=== PATIENT | female | born 1945 | race Caucasian/White ===

== ENCOUNTER → 2019-01-14 | Outpatient (CLI) | payer MEDICARE ==
[2019-01-14 12:12] LABS: Basophils # (A) 0.1 k/uL (0-0.2); Basophils % (A) 2 %; Eosinophils # (A) 0.2 k/uL (0-0.7); Eosinophils % (A) 5 %; HCT 38.8 % (34.0-46.0); HGB 12.9 gm/dL (11.4-16.0); Lymphocytes # (A) 1.1 k/uL (1.0-4.8); Lymphocytes % (A) 30 %; MCH 28.9 pg (25.0-35.0); MCHC 33.4 g/dL (31.0-37.0); MCV 86.6 fL (80.0-100.0); Mean Platelet Volume 7.6; Monocytes # (A) 0.2 k/uL (0-1.0); Monocytes % (A) 6 %; Neutrophils # (A) 2.1 k/uL (1.3-7.7); Neutrophils % (A) 54 %; Platelet Count 230 k/uL (150-450); RBC 4.48 m/uL (3.80-5.40); RDW 13.5 % (11.5-15.5); WBC 3.8 k/uL (3.8-10.6)
[2019-01-14 12:17] LABS: Appearance,Urine Clear (Clear); Bilirubin,Urine Negative (Negative); Blood,Urine Negative (Negative); Color,Urine Yellow; Glucose,Urine (UA) Negative (Negative); Ketones,Urine Negative (Negative); Leukocyte Esterase,Urine Negative (Negative); Nitrite,Urine Negative (Negative); PH, Urine 7.5 (5.0-8.0); Protein,Urine Negative (Negative); Specific Gravity,Urine 1.007 (1.001-1.035); Urobilinogen,Urine <2.0 mg/dL (<2.0)
[2019-01-14 12:43] LABS: Anion Gap 8 mmol/L; Blood Urea Nitrogen 28 mg/dL (7-17); Calcium 10.3 mg/dL (8.4-10.2); Carbon Dioxide 28 mmol/L (22-30); Chloride 105 mmol/L (98-107); Glucose 122 mg/dL (74-99); Potassium 4.3 mmol/L (3.5-5.1); Sodium 141 mmol/L (137-145)
== END | disposition home or self-care (01) ==
LOC: LABPAT 11:32
PROVIDERS: ATTEND Urology
DX: Z01.818 Encounter for other preprocedural examination (principal); Z01.812 Encounter for preprocedural laboratory examination; I10 Essential (primary) hypertension; N39.3 Stress incontinence (female) (male); E11.9 Type 2 diabetes mellitus without complications; R35.0 Frequency of micturition
CPT/HCPCS: 36415; 80048; 81003; 85025; 87086; 93005; 96360; 99285

== ENCOUNTER 2019-01-21 07:11 | Day surgery (SDC) | payer MEDICARE ==
[2019-01-19 09:24] VITALS: BMI 31.6
--- NOTE | 2019-01-20 19:53 | P.GSHP ---
History of Present Illness H&P Date: 01/20/19 73 yo female with mixed incontinence with a primary stress component who comes for a TOT to control her neftaly. SHe leaks with cough sneeze and actvity Her UDS showed lpp of 139cm h2o and a capacity of 375 SHe comes for a TOT THe erisks and complications including the MESH controversy has been discussed. - Constitutional Constitutional: Denies chills, Denies fever - EENT Eyes: denies blurred vision, denies pain Ears, nose, mouth and throat: Denies headache, Denies sore throat - Cardiovascular Cardiovascular: Denies chest pain, Denies shortness of breath - Respiratory Respiratory: Denies cough, Denies 7 - Gastrointestinal Gastrointestinal: Denies abdominal pain, Denies diarrhea, Denies nausea, Denies vomiting - Genitourinary (Female) Genitourinary: Denies dysuria, Denies hematuria - Genitourinary (Male) Genitourinary: Denies dysuria, Denies hematuria - Musculoskeletal Musculoskeletal: Denies myalgias - Integumentary Integumentary: Denies pruritus, Denies rash - Neurological Neurological: Denies numbness, Denies weakness - Psychiatric Psychiatric: Denies anxiety, Denies depression - Endocrine Endocrine: Denies fatigue, Denies weight change Past Medical History Past Medical History: CVA/TIA, Diabetes Mellitus, Hyperlipidemia, Hypertension, Osteoarthritis (OA) History of Any Multi-Drug Resistant Organisms: None Reported Past Surgical History: Adenoidectomy, Joint Replacement, Tonsillectomy, Tubal Ligation Additional Past Surgical History / Comment(s): sinus, finger, bilat knee replacement Past Anesthesia/Blood Transfusion Reactions: No Reported Reaction Smoking Status: Never smoker - Past Family History Sister(s) Family Medical History: Myocardial Infarction ([place]), Pulmonary Embolus Medications and Allergies Home Medications Medication Instructions Recorded Confirmed Type Acyclovir [Zovirax] 400 mg PO TID PRN 01/19/19 01/19/19 History Aspirin [Adult Low Dose Aspirin EC] 81 mg PO QAM 01/19/19 01/19/19 History Atenolol [Tenormin] 25 mg PO QAM 01/19/19 01/19/19 History Atorvastatin [Lipitor] 20 mg PO HS 01/19/19 01/19/19 History Calcium/Magnesium/Zinc 1 each PO DAILY 01/19/19 01/19/19 History [Fiznvaz-Wwbwezacc-Tprf Tablet] Chlorpheniramine Maleate 4 mg PO DAILY 01/19/19 01/19/19 History [Chlor-Trimeton] Fenofibrate [Lofibra] 160 mg PO DAILY 01/19/19 01/19/19 History Lecithin, Soy [Lecithin] 400 mg PO DAILY 01/19/19 01/19/19 History Lisinopril [Zestril] 5 mg PO QAM 01/19/19 01/19/19 History Magnesium 400 mg PO DAILY 01/19/19 01/19/19 History Multivitamins, Thera [Multivitamin 1 tab PO QAM 01/19/19 01/19/19 History (formulary)] [place]-3 Fatty Acids/Fish Oil [Fish 1 each PO DAILY 01/19/19 01/19/19 History Oil 1,000 mg Softgel] Potassium 99 mg PO QAM 01/19/19 01/19/19 History Sertraline [Zoloft] 50 mg PO QAM 01/19/19 01/19/19 History Vitamin B Complex 1 each PO QAM 01/19/19 01/19/19 History metFORMIN HCL [Glucophage] 500 mg PO BID 01/19/19 01/19/19 History tiZANidine [Zanaflex] 2 mg PO Q8HR PRN 01/19/19 01/19/19 History Allergies Allergy/AdvReac Type Severity Reaction Status Date / Time No Known Allergies Allergy Verified 01/19/19 08:57 Surgical - Exam - General well developed, well nourished - Eyes PERRL - ENT no hearing loss - Neck trachea midline - Respiratory normal expansion, normal respiratory effort - Abdomen Abdomen: soft, non tender - Genitourinary neftaly with valsalva with hypermobility of the urethra. - Integumentary no rash, no growths - Neurologic normal coordination, normal sensation - Musculoskeletal normal gait, normal posture - Psychiatric oriented to time, oriented to person, oriented to place, speech is normal, memory intact
[~2019-01-21 07:11] MED LIST: DEXAMETHASONE SOD PHOSPHATE 10 MG/ML 1 ML VIAL IV ONE; HYDROmorphone 0.5 MG/0.5 ML SYRINGE IVP PRN; MIDAZOLAM 2 MG/2 ML VIAL IV PRN; ONDANSETRON 4 MG/2 ML VIAL IVP ONE; SCOPOLAMINE 1.5MG/72HR PATCH TRANSDERM ONE
[2019-01-21] MEDS ORDERED: LIDOCAINE 1% 20 ML VIAL (10MG/ML) FOR IV START INTRADERMA ONE (07:28)
[2019-01-21] MEDS: LACTATED RINGERS 1,000 ML IV SCH ×2 (07:29→20:32)
[2019-01-21 07:49] LABS: Glucose,Whole Blood 137 mg/dL (75-99)
[2019-01-21] MEDS ORDERED: LIDOCAINE 1% INJ 10MG/ML (20 ML MDV) ONE (08:25)
[2019-01-21] MEDS ORDERED: PROPOFOL 10 MG/ML 20 ML VIAL IV ONE (08:25)
[2019-01-21] MEDS ORDERED: MIDAZOLAM 2 MG/2 ML VIAL ONE (08:25)
[2019-01-21] MEDS ORDERED: fentaNYL (PF) 50 MCG/ML 2 ML AMP ONE (08:25)
[2019-01-21] MEDS ORDERED: SUCCINYLCHOLINE CHLORIDE 100 MG/5 ML SYR IV ONE (08:25)
[2019-01-21] MEDS ORDERED: GENTAMICIN IN NACL ISO-OSM PMX 80 MG/100 ML BAG IV ONE (08:45)
[2019-01-21] MEDS ORDERED: BACITRACIN 500 UNIT/GM OINT 28.4 GM TUBE TOPICAL ONE (08:45)
[2019-01-21] MEDS ORDERED: VASOPRESSIN 20 UNIT/ML 1 ML VIAL IM ONE (08:45)
[2019-01-21] MEDS ORDERED: NON-FORMULARY DRUG (Acyclovir [Zovirax] 400 MG) PO PRN (09:11)
[2019-01-21] MEDS ORDERED: ONDANSETRON 4 MG/2 ML VIAL IVP PRN (09:13)
[2019-01-21] MEDS ORDERED: HYDROcodone/APAP 5-325MG 1 EACH TAB PO PRN (09:15)
--- NOTE | 2019-01-21 09:18 | P.OP ---
Date of Procedure: 01/21/19 Preoperative Diagnosis: Stress urinary incontinence Postoperative Diagnosis: Same Procedure(s) Performed: Trans-obturator tape with cystoscopy Anesthesia: MAXIMUS Surgeon: Ta Abraham Estimated Blood Loss (ml): 25 Pathology: none sent Condition: stable Disposition: PACU Indications for Procedure: The patient is 73. She has documented stress urinary incontinence. She comes for a trans-obturator tape. The mesh controversy has been discussed Description of Procedure: The patient is brought to the operating suite. She is given a successful general endotracheal anesthesia on the operating table. She's placed lithotomy position with a shave and sterile prep and drape. The labia are sewn laterally with 2-0 silk. A 16[place] Garcia cath was introduced the bladder clear urine return. A vaginal speculum was placed. The anterior vaginal mucosa was elevated off the submucosa with 20 g of Pitressin and 200 mL of saline. A midline suburethral incision is made. I dissect lateral the bladder neck bilaterally. I then make incisions in the inguinal crease at the level of the clitoris bilaterally. I passed the obturator trans-obturator tape introducers into the incisions through the obturator foramen into the vaginal space bilaterally making sure not to buttonhole the vagina or injure the bladder. Cystoscopy Foroblique lens and 17[place] sheath was performed identifying no evidence of bladder injury. The ureters are normal. The bladder mucosa is unremarkable. I then attached the graft to the introducers and pull the graft back through the obturator foramen through the inguinal incisions. The graft lay in the mid urethra nicely. I removed the redundant sheeting. I closed the vaginal mucosa with 2-0 Vicryl. I excised the redundant graft at the inguinal incisions and closed the inguinal incisions with 4-0 Vicryl. A Garcia catheters previously been replaced. The urine remains clear. Vaginal packing is placed. The labial stitches are removed. The patient is awake and returned recovery in good condition. Blood loss is approximately 25 mL.
[2019-01-21] MEDS: KETOROLAC 30 MG/ML 1 ML VIAL IVP PRN ×3 (10:35→23:45)
[2019-01-21] MEDS: SODIUM CHLORIDE 0.45% 1,000 ML IV SCH ×2 (10:54→22:14)
[2019-01-21] MEDS: metFORMIN 500 MG TAB PO SCH (17:24)
[2019-01-21] MEDS ORDERED: LORATADINE-PSEUDOEPH 5-120 MG 1 EACH TAB.ER.12H PO PRN (17:32)
[2019-01-21] MEDS ORDERED: ATORVASTATIN 20 MG TAB PO SCH (21:00)
[2019-01-22 00:54] VITALS: PULSE 75
--- NOTE | 2019-01-22 06:19 | P.DS ---
Providers Attending physician: Ta Abraham Primary care physician: [facility] Course: The patient was admitted to the hospital 01/21/2019 for a trans-obturator tape cystoscopy. She underwent this without difficulty. She was kept in the hospital overnight. Her pain was controlled other than some hip discomfort due to lithotomy position. Vital signs are stable. Urine is clear. The catheter vaginal packing and IV will be discontinued this morning. If she voids without difficulty she'll be discharged home later. She'll resume all her home medications. She will take Tylenol or Motrin for pain. She'll follow-up in the office in one week. Her condition is good. Patient Condition at Discharge: Good Plan - Discharge Summary Discharge Rx Participant: No New Discharge Prescriptions: No Action Multivitamins, Thera [Multivitamin (formulary)] 1 tab PO QAM Acyclovir [Zovirax] 400 mg PO TID PRN PRN Reason: cold sores metFORMIN HCL [Glucophage] 500 mg PO BID Sertraline [Zoloft] 50 mg PO QAM Atorvastatin [Lipitor] 20 mg PO HS Atenolol [Tenormin] 25 mg PO QAM Vitamin B Complex 1 each PO QAM Potassium 99 mg PO QAM [place]-3 Fatty Acids/Fish Oil [Fish Oil 1,000 mg Softgel] 1 each PO DAILY Magnesium 400 mg PO DAILY Lisinopril [Zestril] 5 mg PO QAM Lecithin, Soy [Lecithin] 400 mg PO DAILY Fenofibrate [Lofibra] 160 mg PO DAILY Chlorpheniramine Maleate [Chlor-Trimeton] 4 mg PO DAILY Calcium/Magnesium/Zinc [Shfkxpc-Nxgyrvbto-Eciz Tablet] 1 each PO DAILY Aspirin [Adult Low Dose Aspirin EC] 81 mg PO QAM tiZANidine [Zanaflex] 2 mg PO Q8HR PRN PRN Reason: Muscle Spasm Discharge Medication List Acyclovir [Zovirax] 400 mg PO TID PRN 01/19/19 [History] Aspirin [Adult Low Dose Aspirin EC] 81 mg PO QAM 01/19/19 [History] Atenolol [Tenormin] 25 mg PO QAM 01/19/19 [History] Atorvastatin [Lipitor] 20 mg PO HS 01/19/19 [History] Calcium/Magnesium/Zinc [Tqwuklx-Xehtvozjq-Fhhb Tablet] 1 each PO DAILY 01/19/19 [History] Chlorpheniramine Maleate [Chlor-Trimeton] 4 mg PO DAILY 01/19/19 [History] Fenofibrate [Lofibra] 160 mg PO DAILY 01/19/19 [History] Lecithin, Soy [Lecithin] 400 mg PO DAILY 01/19/19 [History] Lisinopril [Zestril] 5 mg PO QAM 01/19/19 [History] Magnesium 400 mg PO DAILY 01/19/19 [History] Multivitamins, Thera [Multivitamin (formulary)] 1 tab PO QAM 01/19/19 [History] [place]-3 Fatty Acids/Fish Oil [Fish Oil 1,000 mg Softgel] 1 each PO DAILY 01/19/19 [History] Potassium 99 mg PO QAM 01/19/19 [History] Sertraline [Zoloft] 50 mg PO QAM 01/19/19 [History] Vitamin B Complex 1 each PO QAM 01/19/19 [History] metFORMIN HCL [Glucophage] 500 mg PO BID 01/19/19 [History] tiZANidine [Zanaflex] 2 mg PO Q8HR PRN 01/19/19 [History] Follow up Appointment(s)/Referral(s): aT Abraham MD [STAFF PHYSICIAN] - 1 Week Discharge Disposition: HOME SELF-CARE
[2019-01-22] MEDS: metFORMIN 500 MG TAB PO SCH (06:53)
[2019-01-22] MEDS: SODIUM CHLORIDE 0.45% 1,000 ML IV SCH (08:29)
[2019-01-22] MEDS ORDERED: FENOFIBRATE 160 MG TAB PO SCH (09:00)
[2019-01-22] MEDS ORDERED: LISINOPRIL 5 MG TAB PO SCH (09:00)
[2019-01-22] MEDS ORDERED: NON-FORMULARY DRUG (Magnesium [Magnesium] 400 MG) PO SCH (09:00)
[2019-01-22] MEDS ORDERED: ATENOLOL 25 MG TAB PO SCH (09:00)
[2019-01-22] MEDS ORDERED: SERTRALINE 50 MG TAB PO SCH (09:00)
[2019-01-22] MEDS ORDERED: CHLORPHENIRAMINE MALEATE 4 MG PO SCH (09:00)
[2019-01-22] MEDS ORDERED: NON-FORMULARY DRUG (Potassium [Potassium] 99 MG) PO SCH (09:00)
[2019-01-22 10:03] VITALS: BP 145/75; RESP 20; TEMP 98.1
[2019-01-23 10:58] LABS: Glucose,Whole Blood 128 mg/dL (75-99)
== END 2019-01-22 12:25 | disposition home or self-care (01) ==
LOC: OR 07:11 → 6PED 09:36 → OR 01-22 12:25
PROVIDERS: ATTEND Urology
DX: N39.46 Mixed incontinence (principal); I10 Essential (primary) hypertension; E78.5 Hyperlipidemia, unspecified; E11.9 Type 2 diabetes mellitus without complications; Z86.73 Personal history of transient ischemic attack (TIA), and cerebral infarction without residual deficits; M19.90 Unspecified osteoarthritis, unspecified site; Z98.51 Tubal ligation status; Z79.84 Long term (current) use of oral hypoglycemic drugs; Z79.82 Long term (current) use of aspirin; Z79.899 Other long term (current) drug therapy
CPT/HCPCS: 57288; C1771; J1580; J2250; J1100; J2405; J0690; J2001; J3010; J1885; J0330; J2704

== ENCOUNTER → 2019-05-28 | Outpatient (CLI) | payer MEDICARE ==
[2019-05-28 10:52] VITALS: RESP 16; BMI 31.6
[2019-05-28 13:18] VITALS: BP 125/73; PULSE 56; TEMP 98.5
--- NOTE | 2019-05-28 14:01 | MM ---
EXAMINATION TYPE: MG stereo VAD BX LT, MG stereo VAD BX RT DATE OF EXAM: 05/28/2019 COMPARISON: Bilateral mammogram of the same date and prior reports from outside mammograms of 2019 CLINICAL HISTORY: Left breast calcifications for which stereotactic guided biopsy was recommended and right breast mass with no sonographic correlate for which stereotactic guided biopsy was also recommended TECHNIQUE: Stereotactic guided core biopsy of the bilateral breasts. FINDINGS: The procedure of stereotactic guided core biopsy was explained to the patient. Benefits, alternatives, and risks were discussed. An informed consent was then obtained. Preprocedural timeout was performed. Site A: Left breast. The shortness pathway for biopsy was chosen. Shortness pathway was lateral to medial approach. Preprocedural localization images were obtained and a 6 mm group of calcifications within the upper central right left was demonstrated. Coordinates were calculated. Subsequently 10 cc of lidocaine without epinephrine was utilized to anesthetize the skin and deeper subcutaneous soft tissues. The needle was advanced to the appropriate depth. Prefire images were obtained ensuring appropriate location. Postfire injection of 4 cc of lidocaine with epinephrine was utilized to anesthetize the site of biopsy. A vacuum assisted biopsy gun was used to obtain 8 core samples. Site B: Right breast.The shortness pathway for biopsy was chosen. Shortness pathway was CC from below approach. Preprocedural localization images were obtained and a 6 mm mass with associated calcifications within the upper central right breast was demonstrated. Coordinates were calculated. Subsequently 10 cc of lidocaine without epinephrine was utilized to anesthetize the skin and deeper subcutaneous soft tissues. The needle was advanced to the appropriate depth. Prefire images were obtained ensuring appropriate location. Postfire injection of 10 cc of lidocaine with epinephrine was utilized to anesthetize the site of biopsy. A vacuum assisted biopsy gun was used to obtain 9 core samples. The patient tolerated the procedure well without any immediate complication. The patient was kept in the radiology department for short stay after the procedure and then discharged home in stable condition. Targeted calcifications are identified in specimen mammogram. Post biopsy mammogram shows the right breast marker to appear approximately 2 cm from the biopsy area with air at the site of biopsy and absence of the associated calcifications. The needle was retracted slightly prior to biopsy marker placement as the patient was experiencing pain. The left biopsy marker to appear in satisfactory position relative to the targeted area of concern on the preprocedure images. IMPRESSION: SUCCESSFUL, UNCOMPLICATED STEREOTACTIC GUIDED CORE BIOPSY OF INDETERMINATE CALCIFICATIONS IN THE LEFT BREAST AND A MASS WITH ASSOCIATED CALCIFICATIONS IN THE RIGHT BREAST, FULL PATHOLOGY RESULTS TO FOLLOW. Pathology Results: Malignant A. LEFT BREAST, STEREOTACTIC CORE BIOPSY: Fibroadenomatoid hyperplasia with calcifications in a background of fibrocystic changes. B. 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 See Surgical Pathology Cancer Case Summary and Comment. Recommendation Surgical consultation of the right breast. Right breast surgical/medical management. Left breast benign and concordant. MTDD
--- NOTE | 2019-05-28 15:04 | USB ---
Reason for exam: additional evaluation requested from prior study. US Breast Limited RT Right limited breast ultrasound including focal area of concern, retroareolar and axilla demonstrates a 0.3 x 0.4 x 0.4cm lesion at 1 o'clock, appears as an oil cyst. Other smaller similar right masses. No suspicious finding. No sonographic correlate to the mammographic finding. These results were verbally communicated with the patient and result sheet given to the patient on 05/28/19. ASSESSMENT: Suspicious, BI-RAD 4 RECOMMENDATION: Stereotactic core biopsy of the right breast.
== END ==
LOC: RADMAMWWP 09:29
PROVIDERS: ATTEND Nurse Practitioner Family
DX: R92.8 Other abnormal and inconclusive findings on diagnostic imaging of breast (principal)
CPT/HCPCS: 19081; 19082; 88305; 88342; 88341; 76642; A4648; J2001

== ENCOUNTER → 2019-06-04 | Outpatient (CLI) | payer MEDICARE ==
[2019-06-04 07:44] VITALS: BP 145/81; PULSE 56; RESP 18; TEMP 97.6; BMI 31.6
--- NOTE | 2019-06-04 08:22 | P.GSHP ---
History of Present Illness H&P Date: 06/04/19 Clara is a 74-year-old white female who had a routine bilateral mammogram performed on . This revealed grouped calcifications in the left upper outer quadrant which had increased from prior exam. Stereotactic core biopsy was recommended. Additionally a right breast ultrasound was recommended. The right breast mammogram had revealed an area of the mass which did not show anything of concern on ultrasound. A right breast ultrasound was performed on 9518 this showed only a 0.3 x 0.4 cm lesion at 1:00 believed to be an oil cyst. The patient was recommended to undergo a stereo biopsy of both breast. Pathology revealed in the left breast fibroadenomatoid hyperplasia with calcifications. In the right breast focal low-grade ductal carcinoma in situ was found arising in a fibroadenoma. The patient did not feel anything in either breast prior to the procedure. She has had no complications related to the biopsies. In the past the patient has had a biopsy she is uncertain as to which side it was on but this was benign. Family history: 1.father: esophogeal cancer, at 40 2. maternal grandfather: colon cancer Hormonal history: Menarche: 12 , 1 miscarriage, breast fed: no, first at 18 menopause: 50 BCP: 8 years Hormones: none Past Surgical History: 1. bilateral knees replacement 2. bilateral hands 3. sinus 4. hysterectomy unsure if took ovaries, bleeding 5. carpal tunnel 6. bladder sling Medical History: 1. Incontinence 2. Diabetes 3. Hyperlipidemia 4. Hypertension 5. Arthritis Social History: smoke: none alcohol: none drugs: none - Constitutional Constitutional: Denies chills, Denies fever - EENT Comment: wears glasses Eyes: denies blurred vision, denies pain Ears: bilateral: decreased hearing Ears, nose, mouth and throat: Denies headache, Denies sore throat - Breasts Breasts: bilateral: as per HPI - Cardiovascular Comment: leaky valves, follows every six months Cardiovascular: Reports high blood pressure - Respiratory Respiratory: Denies cough, Denies 7 - Gastrointestinal Gastrointestinal: Denies abdominal pain, Denies diarrhea, Denies nausea, Denies vomiting - Genitourinary (Female) Comment: Incontinence - Menstruation Menstruation: Reports post hysterectomy - Musculoskeletal Comment: arthritis - Integumentary Integumentary: Denies pruritus, Denies rash - Neurological Neurological: Denies numbness, Denies weakness - Psychiatric Psychiatric: Reports anxiety - Endocrine Comment: diabetes - Hematologic/Lymphatic Comment: baby aspirin every day - Allergic/Immunologic Allergic/Immunologic: Reports seasonal allergies Past Medical History Past Medical History: Diabetes Mellitus, Hyperlipidemia, Hypertension Additional Past Medical History / Comment(s): arthritis History of Any Multi-Drug Resistant Organisms: None Reported Past Surgical History: Hysterectomy, Joint Replacement, Orthopedic Surgery, Tubal Ligation Additional Past Surgical History / Comment(s): bilat hand surgey, bilat knee replacement, sinus surgery, dilatation and curettage, history of breast biopsy (Unsure which breast), bilateral breast biopsies 05/28/2019, carpal tunnel surgery, bladder sleeve 2018, Past Anesthesia/Blood Transfusion Reactions: No Reported Reaction Past Psychological History: Anxiety Smoking Status: Never smoker Past Alcohol Use History: None Reported Past Drug Use History: None Reported - Past Family History Father Family Medical History: Cancer Additional Family Medical History / Comment(s): esophagus cancer Mother Family Medical History: No Reported History Medications and Allergies Home Medications Medication Instructions Recorded Confirmed Type Aspirin [Adult Low Dose Aspirin EC] 81 mg PO QA 01/19/19 06/04/19 History Atenolol [Tenormin] 25 mg PO QAM 01/19/19 06/04/19 History Atorvastatin [Lipitor] 20 mg PO 01/19/19 06/04/19 History Calcium/Magnesium/Zinc 1 each PO HS 01/19/19 06/04/19 History [Xmvcdhh-Qhyyttxjl-Jyge Tablet] Fenofibrate [Lofibra] 160 mg PO QA 01/19/19 06/04/19 History Lecithin, Soy [Lecithin] 400 mg PO DAILY 01/19/19 06/04/19 History Lisinopril [Zestril] 5 mg PO QAM 01/19/19 06/04/19 History Multivitamins, Thera [Multivitamin 1 tab PO [facility] 01/19/19 06/04/19 History (formulary)] [place]-3 Fatty Acids/Fish Oil [Fish 1 each PO DAILY 01/19/19 06/04/19 History Oil 1,000 mg Softgel] Potassium 99 mg PO QAM 01/19/19 06/04/19 History Sertraline [Zoloft] 50 mg PO QAM 01/19/19 06/04/19 History Vitamin B Complex 1 each PO QAM 01/19/19 06/04/19 History metFORMIN HCL 1,000 mg PO HS 05/13/19 06/04/19 History metFORMIN HCL [Glucophage] 500 mg PO QAM 05/28/19 06/04/19 History Allergies Allergy/AdvReac Type Severity Reaction Status Date / Time adhesive tape AdvReac Rash/Hives Unverified 06/04/19 07:33 Surgical - Exam Vital Signs Temp Pulse Resp BP Pulse Ox 97.6 F 56 L 18 145/81 97 06/04/19 07:36 06/04/19 07:36 06/04/19 07:36 06/04/19 07:36 06/04/19 07:36 BMI 31.6 - General well developed, well nourished, no distress - Eyes normal ocular movement - ENT no hearing loss, no congestion - Neck trachea midline - Respiratory normal respiratory effort, clear to auscultation - Cardiovascular Rhythm: regular Heart Sounds: normal: S1, S2 - Abdomen Abdomen: soft, non tender, no guarding, no rigid, no rebound - Integumentary Achymosis left breast lateral aspect related to ecent stero-biopsy - Neurologic no disoriented, no combative - Musculoskeletal normal gait, normal posture - Psychiatric oriented to time, oriented to person, oriented to place, speech is normal, memory intact Breast examination: 40 mL Right breast: Multi-positional exam no dominant masses or nodules of concern, fibrocystic changes Right axilla: No adenopathy of concern Left breast: Multi-positional exam no dominant masses or nodules of concern, ecchymosis lateral aspect of the breast with a small hematoma near the area of the achymosis, fibrocystic changes Left axilla: No adenopathy of concern Results Bilateral mammogram, right breast ultrasound, and pathology results are reviewed Assessment and Plan Assessment: Impression: 1. Incontinence 2. Diabetes 3. Hyperlipidemia 4. Hypertension 5. Arthritis 6. Abnormal radiographs bilateral breast 7. Abnormal ultrasound right breast 8. Fibrocystic changes left breast 9. Fibroadenoma right breast with DCIS arising in fibroadenoma 10. Family history of cancer Plan: 1. Needle localization excisional biopsy of fibroadenoma with DCIS in operating room 2. Presented tumor Board 3. Medical management of medical conditions 4. Cardiac clearance Risk and benefits of procedure discussed with patient and she wishes to proceed. She understands that if pathology reveal more extensive disease she may need further surgical intervention. Cc: Dr. Yan Gonzalez
== END ==
LOC: WWCWWP 07:22
PROVIDERS: ATTEND Surgery
DX: Z53.9 Procedure and treatment not carried out, unspecified reason (principal)

== ENCOUNTER 2019-06-23 10:17 | Day surgery (SDC) | payer MEDICARE ==
[2019-06-19 11:17] VITALS: BMI 31.6
[~2019-06-23 10:17] MED LIST changes: +HEPARIN SODIUM,PORCINE 5,000 UNIT/ML 1 ML VIAL SQ ONE; +LACTATED RINGERS 1,000 ML IV SCH; +LIDOCAINE 1% 20 ML VIAL (10MG/ML) FOR IV START INTRADERMA PRN; +Pre Op ABX Message 1 EACH MISC MISCELLANE ONE
[2019-06-23 11:05] LABS: Glucose,Whole Blood 112 mg/dL (75-99)
[2019-06-23] MEDS ORDERED: ALPRAZolam 0.25 MG TAB PO ONE (11:11)
[2019-06-23] MEDS ORDERED: LIDOCAINE 1% INJ 10MG/ML (20 ML MDV) SQ ONE ×3 (11:45→14:39)
[2019-06-23] MEDS ORDERED: GLYCOPYRROLATE 0.2 MG/ML 2 ML VIAL ONE (14:05)
[2019-06-23] MEDS ORDERED: PROPOFOL 10 MG/ML 20 ML VIAL IV ONE (14:05)
[2019-06-23] MEDS ORDERED: LIDOCAINE 1% INJ 10MG/ML (20 ML MDV) ONE (14:05)
[2019-06-23] MEDS ORDERED: MIDAZOLAM 2 MG/2 ML VIAL ONE (14:05)
[2019-06-23] MEDS ORDERED: PHENYLEPHRINE-0.9% NACL SYG 1 MG/10 ML SYRINGE ONE (14:05)
[2019-06-23] MEDS ORDERED: fentaNYL (PF) 50 MCG/ML 2 ML AMP ONE (14:05)
[2019-06-23] MEDS ORDERED: NEOSTIGMINE 1 MG/ML 10 ML VIAL ONE (14:05)
[2019-06-23] MEDS ORDERED: ROCURONIUM BROMIDE 10 MG/ML 10 ML VIAL IV ONE (14:05)
[2019-06-23] MEDS ORDERED: ePHEDrine SULFATE/0.9% NACL/PF 50 MG/5 ML SYRINGE IV ONE (14:05)
[2019-06-23] MEDS ORDERED: LACTATED RINGERS 1,000 ML IV ONE (14:15)
--- NOTE | 2019-06-23 15:38 | P.NAPBC ---
NAPBC Queries - NAPBC Queries Was patient's case review presented at [facility] tumor board? If no, comment.: Yes Was patient's pathology reviewed at [facility]? If no, comment.: Yes Was breast conservation surgery offered? If no, comment.: Yes Was sentinel node biopsy offered? If no, comment.: No (not recommended) Was diagnosis confirmed by percutaneous core biopsy? If no, comment.: Yes Is patient mastectomy patient?: No Clinical Stage: stage 0
--- NOTE | 2019-06-23 15:38 | P.OP ---
Date of Procedure: 06/23/19 Preoperative Diagnosis: right Breast ductal carcinoma in situ arising the fibroadenoma Postoperative Diagnosis: Same Procedure(s) Performed: Right breast needle localization excision of ductal carcinoma in situ, tissue transfer for on-co plastic closure Anesthesia: MAJORA Surgeon: Jewels Kelly Estimated Blood Loss (ml): 3 IV fluids (ml): 600 Pathology: other (breast tissue) Condition: stable Disposition: same day Indications for Procedure: Core biopsy proven ductal carcinoma in situ Operative Findings: Dense breast tissue Description of Procedure: Clara is a 74-year-old white female who had an ultrasound core biopsy of area of concern of the right breast. This revealed ductal carcinoma in situ in a fibroadenoma. The patient opted for a lumpectomy. The patient first went to the radiology department where needle localization of the area of concern was performed. The patient was brought to the operating room and the right breast was prepped and draped in a sterile fashion. A circumareolar incision was made and carried down to the subcutaneous tissue. Dissection was performed to the area of the shaft of the needle. This was brought through the skin. This tissue was grasped using an Allis clamp and a wedge resection was performed around the needle down to the pectoralis major muscle posteriorly. The specimen was painted for orientation and radiograph revealed the area of concern had been removed. Following this the superior and inferior tissue flaps were mobilized. This was approximately 10 cm x 2 cm for the superior flap and 10 cm x 2 cm for the inferior flap. Approximately 40 cm of tissue was mobilized. Titanium clips were placed into the area of the biopsy cavity to clara where the biopsy been performed. The superior and inferior pedicles of tissue were then mobilized and brought together using 3-0 Vicryl suture. After assured that hemostasis was attained the skin closure was performed. Following this the subcutaneous tissue was closed using 4-0 Vicryl suture. The skin was closed using a 4=0 Monocryl. Was applied. The patient tolerated the procedure in stable condition. All instrument and sponge counts were correct at the end of the case.
--- NOTE | 2019-06-23 15:39 | P.DS ---
Providers Attending physician: Jewels Kelly Primary care physician: Tim Rees Plan - Discharge Summary Discharge Rx Participant: Yes New Discharge Prescriptions: No Action Multivitamins, Thera [Multivitamin (formulary)] 1 tab PO QAM Sertraline [Zoloft] 50 mg PO QAM Atorvastatin [Lipitor] 20 mg PO HS Atenolol [Tenormin] 25 mg PO QAM Vitamin B Complex 1 each PO QAM Potassium 99 mg PO QAM Follett-3 Fatty Acids/Fish Oil [Fish Oil 1,000 mg Softgel] 1 each PO DAILY Lisinopril [Zestril] 5 mg PO QAM Lecithin, Soy [Lecithin] 400 mg PO DAILY Fenofibrate [Lofibra] 160 mg PO QAM Calcium/Magnesium/Zinc [Cniqmol-Kexvylmks-Kmbw Tablet] 3 each PO HS Aspirin [Adult Low Dose Aspirin EC] 81 mg PO QAM metFORMIN HCL 1,000 mg PO HS metFORMIN HCL [Glucophage] 500 mg PO QAM Discharge Medication List Aspirin [Adult Low Dose Aspirin EC] 81 mg PO QAM 01/19/19 [History] Atenolol [Tenormin] 25 mg PO QAM 01/19/19 [History] Atorvastatin [Lipitor] 20 mg PO HS 01/19/19 [History] Calcium/Magnesium/Zinc [Vkmvngp-Qumvmbdfr-Tikh Tablet] 3 each PO HS 01/19/19 [History] Fenofibrate [Lofibra] 160 mg PO QAM 01/19/19 [History] Lecithin, Soy [Lecithin] 400 mg PO DAILY 01/19/19 [History] Lisinopril [Zestril] 5 mg PO QAM 01/19/19 [History] Multivitamins, Thera [Multivitamin (formulary)] 1 tab PO QAM 01/19/19 [History] Follett-3 Fatty Acids/Fish Oil [Fish Oil 1,000 mg Softgel] 1 each PO DAILY 9 [History] Potassium 99 mg PO QAM 01/19/19 [History] Sertraline [Zoloft] 50 mg PO QAM 01/19/19 [History] Vitamin B Complex 1 each PO QAM 01/19/19 [History] metFORMIN HCL 1,000 mg PO HS 05/13/19 [History] metFORMIN HCL [Glucophage] 500 mg PO QAM 05/28/19 [History] Follow up Appointment(s)/Referral(s): Jewels Kelly MD [STAFF PHYSICIAN] - 1 Week Activity/Diet/Wound Care/Special Instructions: Do not drive for 24 hours after release from Hospital Patient may shower after 48 hours Wear bra at all times Discharge Disposition: HOME SELF-CARE
[2019-06-23 15:53] VITALS: TEMP 96.8
[2019-06-23 16:04] VITALS: RESP 16
[2019-06-23 16:24] LABS: Glucose,Whole Blood 78 mg/dL (75-99)
[2019-06-23 16:48] VITALS: BP 152/78; PULSE 62
--- NOTE | 2019-06-23 18:15 | MM ---
EXAMINATION TYPE: MG pre op needle loc LT DATE OF EXAM: 06/23/2019 COMPARISON: 05/28/2019 CLINICAL HISTORY: Abnormal mammogram TECHNIQUE: Needle localization with wire placement and surgical excision of area of concern in the ri t breast. FINDINGS: The procedure of needle localization with wire placement and than surgical excision was exp lained to the patient. Benefits, alternatives, and risks were discussed. An informed consent was th en obtained. The shortest pathway for procedure was chosen. Shortest pathway was medial approach. The overlying s kin was prepped and draped in usual sterile fashion. Lidocaine buffered with bicarbonate was used as anesthetic into the skin and subcutaneous tissue up to the level of area of concern. A 9 cm needle was used. It was placed via a medial approach under mammographic guidance. Subsequent 90 degrees ma mmogram show the needle to be in satisfactory position relative to the targeted area. At this point, wire was placed and the needle was withdrawn. The wire was fixed to patient's skin. Images were ma rked for surgeon. Mammographic images were reviewed and case discussed in person. The patient tolerated the procedure well without any immediate complication. The patient was kept in the radiology department for short stay after the procedure and then taken to surgery for surgical e xcision. Specimen: Surgical clip and previous biopsy position and wire are identified in specimen mammogram. IMPRESSION: 1. Successful wire localization and excision. Recommendations: 1. Recommendations are pending pathology.
== END 2019-06-23 17:09 | disposition home or self-care (01) ==
LOC: OR 10:17
PROVIDERS: ATTEND Surgery
DX: D05.11 Intraductal carcinoma in situ of right breast (principal); N60.11 Diffuse cystic mastopathy of right breast; N60.81 Other benign mammary dysplasias of right breast; N62 Hypertrophy of breast; N64.1 Fat necrosis of breast; Z80.0 Family history of malignant neoplasm of digestive organs; Z96.653 Presence of artificial knee joint, bilateral; Z90.710 Acquired absence of both cervix and uterus; I10 Essential (primary) hypertension; E78.5 Hyperlipidemia, unspecified; E11.9 Type 2 diabetes mellitus without complications; M19.90 Unspecified osteoarthritis, unspecified site; J30.9 Allergic rhinitis, unspecified; Z98.51 Tubal ligation status; F41.9 Anxiety disorder, unspecified; Z79.84 Long term (current) use of oral hypoglycemic drugs; Z79.82 Long term (current) use of aspirin; Z79.899 Other long term (current) drug therapy; Z91.09 Other allergy status, other than to drugs and biological substances
CPT/HCPCS: 88307; 76098; 19281; 19301; J2250; J1644; J1100; J2710; J2405; J2001; J3010; J2370; J2704

== ENCOUNTER → 2019-07-02 | Outpatient (CLI) | payer MEDICARE ==
[2019-07-02 09:02] VITALS: BP 138/79; PULSE 52; RESP 16; TEMP 97.5; BMI 31.6
--- NOTE | 2019-07-02 09:10 | P.PN ---
Progress Note - Text Progress Note Date: 07/02/19 Clara is status post right breast needle local excisional biopsy of an area of ductal carcinoma in situ the procedure was performed on . Postoperatively the patient has done well and has no complaints. Pathology revealed no residual ductal carcinoma in situ. C changes with focal fibro adenomatoid hyperplasia, fat necrosis, apocrine metaplasia and focal mineralization's. Negative for residual or recurrent cancer. The patient states that her breasts were compressed together in the surgical bra and she has developed a small infection which is consistent with a yeast infection. She has had these in the past. Physical exam: Lungs: Clear Heart: Regular rate and rhythm Incision: Clean and dry mild ecchymosis in the medial aspect of the breast with no evidence of any infection or hematoma In the portion of the breast between the breast there appears to be a small fungal infection and patient will be given a prescription for nystatin cream Impression: 1. No residual DCIS 2. Appointment with medical and radiation oncology 3. Nystatin cream to apply to affected areas between the breast Plan: 1. Nystatin cream to affected areas between the breast 2. Appointment medical and radiation oncology 3. Follow-up here in 3 months in rest patient has concern that the fungal inf ection is clearing up and we'll see her next week Cc: Yan [place], Dr. Doe
== END | disposition home or self-care (01) ==
LOC: WWCWWP 08:41
PROVIDERS: ATTEND Surgery
DX: Z53.9 Procedure and treatment not carried out, unspecified reason (principal)

== ENCOUNTER → 2019-10-01 | Outpatient (CLI) | payer MEDICARE ==
[2019-10-01 16:16] VITALS: BP 132/76; PULSE 63; RESP 18; TEMP 98.4
--- NOTE | 2019-10-01 16:20 | P.PN ---
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 Post operatively the patient was seen by radiation oncology and opted not to have radiation therapy. She is presently on anastrozole from medical oncology. The lesion was approximately 6 mm in size. The patient at this time is doing well. The patient states this and she started the anastrozole she has been having some unusual dreams. Family history: 1.father: esophogeal cancer, at 40 2. maternal grandfather: colon cancer Hormonal history: Menarche: 12 , 1 miscarriage, breast fed: no, first at 18 menopause: 50 BCP: 8 years Hormones: none Past Surgical History: 1. bilateral knees replacement 2. bilateral hands 3. sinus 4. hysterectomy unsure if took ovaries, bleeding 5. carpal tunnel 6. bladder sling Medical History: 1. Incontinence 2. Diabetes 3. Hyperlipidemia 4. Hypertension 5. Arthritis Social History: smoke: none alcohol: none drugs: none - Constitutional Constitutional: Denies chills, Denies fever - EENT Comment: wears glasses Eyes: denies blurred vision, denies pain Ears: bilateral: decreased hearing Ears, nose, mouth and throat: Denies headache, Denies sore throat - Breasts Breasts: bilateral: as per HPI - Cardiovascular Comment: leaky valves, follows every six months Cardiovascular: Reports high blood pressure - Respiratory Respiratory: Denies cough, Denies 7 - Gastrointestinal Gastrointestinal: Denies abdominal pain, Denies diarrhea, Denies nausea, Denies vomiting - Genitourinary (Female) Comment: Incontinence - Menstruation Menstruation: Reports post hysterectomy - Musculoskeletal Comment: arthritis - Integumentary Integumentary: Denies pruritus, Denies rash - Neurological Neurological: Denies numbness, Denies weakness - Psychiatric Psychiatric: Reports anxiety - Endocrine Comment: diabetes - Hematologic/Lymphatic Comment: baby aspirin every day - Allergic/Immunologic Allergic/Immunologic: Reports seasonal allergies Past Medical History Past Medical History: Diabetes Mellitus, Hyperlipidemia, Hypertension Additional Past Medical History / Comment(s): arthritis History of Any Multi-Drug Resistant Organisms: None Reported Past Surgical History: Hysterectomy, Joint Replacement, Orthopedic Surgery, Tubal Ligation Additional Past Surgical History / Comment(s): bilat hand surgey, bilat knee replacement, sinus surgery, dilatation and curettage, history of breast biopsy (Unsure which breast), bilateral breast biopsies 05/28/2019, carpal tunnel surgery, bladder sleeve 2019, Past Anesthesia/Blood Transfusion Reactions: No Reported Reaction Past Psychological History: Anxiety Smoking Status: Never smoker Past Alcohol Use History: None Reported Past Drug Use History: None Reported - Past Family History Father Family Medical History: Cancer Additional Family Medical History / Comment(s): esophagus cancer Mother Family Medical History: No Reported Histor Objective - Exam BMI - Constitutional Constitutional Comment(s): BMI 30.7 General appearance: Present: average body habitus - EENT Eyes: Present: EOMI ENT: Present: hearing grossly normal - Neck Details: no adenopathy Neck: Present: normal ROM - Respiratory Respiratory: bilateral: CTA - Cardiovascular Rhythm: regular Heart sounds: normal: S1, S2 - Gastrointestinal General gastrointestinal: Present: normal bowel sounds, soft - Integumentary Integumentary: Present: normal turgor - Musculoskeletal Musculoskeletal: Present: gait normal - Psychiatric Psychiatric: Present: A&O x's 3, appropriate affect, intact judgment & insight - Additional findings Additional findings: breast exam: right breast: Well-healed scar from prior lumpectomy, scar tissue noted, fibrocystic changes, no evidence of recurrent cancer in the right breast, fibrocystic changes Right axilla: No adenopathy of concern Left breast: Multiple positional exam no dominant masses or nodules of concern Left axilla: No adenopathy of concern Assessment and Plan Assessment: Impression: 1. Incontinence 2. Diabetes 3. Hyperlipidemia 4. Hypertension 5. Arthritis 6. stage 0 right breast cancer no evidence of recurrence 7. patient on annestrazole Plan: 1. follow up in 4 months with a right breast mammogram 2. Continue anastrozole 3. Medical management of medical conditions CC: encounter 20 minutes > 50% of time in planning and counselling
== END | disposition home or self-care (01) ==
LOC: WWCWWP 15:49
PROVIDERS: ATTEND Surgery
DX: Z53.9 Procedure and treatment not carried out, unspecified reason (principal)

== ENCOUNTER → 2020-03-10 | Outpatient (CLI) | payer MEDICARE ==
--- NOTE | 2020-03-14 08:34 | MM ---
Reason for exam: follow-up at short interval from prior study. History: Patient is postmenopausal and has history of breast cancer at age 74. Malignant MG pre op needle loc RT of the right breast, June 23, 2019. Lumpectomy of the right breast, June 23, 2019. Benign MG stereo VAD BX addl LT of the left breast, May 28, 2019. Malignant MG stereo VAD BX RT of the right breast, May 28, 2019. Physical Findings: Nurse did not find any significant physical abnormalities on exam. MG 3D Diag Mammo W/Cad RT CC and MLO view(s) were taken of the right breast. The breast tissue is heterogeneously dense. This may lower the sensitivity of mammography. Finding: There are typically benign dystrophic, round, linear calcifications in the right breast. There are new clips in the right inner breast. Previous mammotome biopsy in the right breast. There is a chronic nodularity in the right breast. There is no discrete abnormality. These results were verbally communicated with the patient and result sheet given to the patient on 03/10/20. ASSESSMENT: Benign, BI-RAD 2 RECOMMENDATION: Follow-up diagnostic mammogram of both breasts in 3 months. Back on schedule for May 2020.
== END | disposition home or self-care (01) ==
LOC: RADMAMWWP 12:49
PROVIDERS: ATTEND Surgery
DX: Z85.3 Personal history of malignant neoplasm of breast (principal)
CPT/HCPCS: 77065; G0279; 77061

== ENCOUNTER → 2020-03-18 | Outpatient (CLI) | payer MEDICARE ==
[2020-03-18 16:04] VITALS: BP 121/76; PULSE 65; RESP 16; TEMP 97.8
--- NOTE | 2020-03-18 16:26 | P.PN ---
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 Post operatively the patient was seen by radiation oncology and opted not to have radiation therapy. She is presently on anastroz ole from medical oncology. The lesion was approximately 6 mm in size. The patient at this time is doing well. The patient states since she started the anastrozole she has been having some unusual dreams. The dreams are not bothering her. She is not having any other symptoms from the anestrazole. Right breast mammogram on 03-10-20 was benign, and repeat bilateral in 3 months recommended. Family history: 1.father: esophogeal cancer, at 40 2. maternal grandfather: colon cancer Hormonal history: Menarche: 12 , 1 miscarriage, breast fed: no, first at 18 menopause: 50 BCP: 8 years Hormones: none Past Surgical History: 1. bilateral knees replacement 2. bilateral hands 3. sinus 4. hysterectomy unsure if took ovaries, bleeding 5. carpal tunnel 6. bladder sling Medical History: 1. Incontinence 2. Diabetes 3. Hyperlipidemia 4. Hypertension 5. Arthritis Social History: smoke: none alcohol: none drugs: none - Constitutional Constitutional: Denies chills, Denies fever - EENT Comment: wears glasses Eyes: denies blurred vision, denies pain Ears: bilateral: decreased hearing Ears, nose, mouth and throat: Denies headache, Denies sore throat - Breasts Breasts: bilateral: as per HPI - Cardiovascular Comment: leaky valves, follows every six months Cardiovascular: Reports high blood pressure - Respiratory Respiratory: Denies cough, - Gastrointestinal Gastrointestinal: Denies abdominal pain, Denies diarrhea, Denies nausea, Denies vomiting - Genitourinary (Female) Comment: Incontinence - Menstruation Menstruation: Reports post hysterectomy - Musculoskeletal Comment: arthritis - Integumentary Integumentary: Denies pruritus, Denies rash - Neurological Neurological: Denies numbness, Denies weakness - Psychiatric Psychiatric: Reports anxiety - Endocrine Comment: diabetes - Hematologic/Lymphatic Comment: baby aspirin every day - Allergic/Immunologic Allergic/Immunologic: Reports seasonal allergies Objective - Vital Signs Vital signs: Vital Signs Temp 97.8 F 03/18/20 16:01 Pulse 65 03/18/20 16:01 Resp 16 03/18/20 16:01 BP 121/76 03/18/20 16:01 Pulse Ox 99 03/18/20 16:01 Intake & Output 03/17/20 03/18/20 03/18/20 18:59 06:59 18:59 Weight 86.183 kg - Exam BMI 31.6 - Constitutional General appearance: Present: obese - EENT Eyes: Present: EOMI ENT: Present: hearing grossly normal - Neck Neck: Present: normal ROM - Respiratory Respiratory: bilateral: CTA - Cardiovascular Rhythm: regular Heart sounds: normal: S1, S2 - Gastrointestinal General gastrointestinal: Present: normal bowel sounds, soft - Musculoskeletal Musculoskeletal: Present: gait normal - Psychiatric Psychiatric: Present: A&O x's 3, appropriate affect, intact judgment & insight - Additional findings Additional findings: breast exam: BRA 40D inspection: bilateral ptosis grade 2/3 right breast post op changes palpation: right breast: Multi-positional exam no dominant masses or nodules of concern Right axilla: No adenopathy of concern Left breast: Multi-positional exam no dominant masses or nodules of concern, fibrocystic changes Left axilla: No adenopathy of concern. No evidence of any recurrent cancer in the right breast Assessment and Plan Assessment: Impression: 1. No evidence of any recurrent cancer in the right breast, this was a stage 0 DCIS 2. Recent right breast mammogram no lesions of concern Plan: 1. Repeat bilateral mammogram in May back on schedule 2. Continue anastrozole as per medical oncology 3. Follow-up here in 4 months CC: GINNY Gonzalez encounter 15 minutes, > 50% of time in planning and counselling
== END | disposition home or self-care (01) ==
LOC: WWCWWP 15:41
PROVIDERS: ATTEND Surgery
DX: Z53.9 Procedure and treatment not carried out, unspecified reason (principal)

== ENCOUNTER → 2020-08-11 | Outpatient (CLI) | payer MEDICARE ==
--- NOTE | 2020-08-12 09:08 | MM ---
Reason for exam: additional evaluation requested from abnormal screening. Last mammogram was performed 5 months ago. History: Patient is postmenopausal and has history of breast cancer at age 74. Malignant MG pre op needle loc RT of the right breast, June 23, 2019. Lumpectomy of the right breast, June 23, 2019. Benign MG stereo VAD BX addl LT of the left breast, May 28, 2019. Malignant MG stereo VAD BX RT of the right breast, May 28, 2019. Physical Findings: Nurse did not find any significant physical abnormalities on exam. MG 3D Diag Mammo W/Cad ELI Bilateral CC and MLO view(s) were taken. Prior study comparison: March 10, 2020, right breast MG 3d diag mammo w/cad RT. April 24, 2019, mammogram. April 07, 2019, mammogram. March 19, 2018, mammogram. There are scattered fibroglandular densities. No significant changes when compared with prior studies. ASSESSMENT: Benign, BI-RAD 2 RECOMMENDATION: Follow-up diagnostic mammogram of both breasts in 1 year.
== END | disposition home or self-care (01) ==
LOC: RADMAMWWP 14:22
PROVIDERS: ATTEND Surgery
DX: R92.8 Other abnormal and inconclusive findings on diagnostic imaging of breast (principal)
CPT/HCPCS: 77066; G0279; 77062

== ENCOUNTER → 2021-03-23 | Outpatient (CLI) | payer MEDICARE ==
[2021-03-23 13:18] VITALS: BP 138/69; PULSE 62; RESP 18; TEMP 98.1
--- NOTE | 2021-03-23 13:38 | P.PN ---
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 Post operatively the patient was seen by radiation oncology and opted not to have radiation therapy. She is presently on anastrozole from medical oncology. The lesion was approximately 6 mm in size. The patient at this time is doing well. The patient states since she started the anastrozole she was initially having some unusual drains which have subsided. She is not having any other symptoms from the anestrazole. She had a bilateral mammogram on which was benign BIRADS 2. [place] [id number] is reviewed. The plan was for continuing the every MedX and continue calcium and vitamin D supplement. Family history: 1.father: esophogeal cancer, at 40 2. maternal grandfather: colon cancer Hormonal history: Menarche: 12 , 1 miscarriage, breast fed: no, first at 18 menopause: 50 BCP: 8 years Hormones: none Past Surgical History: 1. bilateral knees replacement 2. bilateral hands 3. sinus 4. hysterectomy unsure if took ovaries, bleeding 5. carpal tunnel 6. bladder sling 7. right breast lumpectomy Medical History: 1. Incontinence 2. Diabetes 3. Hyperlipidemia 4. Hypertension 5. Arthritis Social History: smoke: none alcohol: none drugs: none - Constitutional Constitutional: Denies chills, Denies fever - EENT Comment: wears glasses Eyes: denies blurred vision, denies pain Ears: bilateral: decreased hearing Ears, nose, mouth and throat: Denies headache, Denies sore throat - Breasts Breasts: bilateral: as per HPI - Cardiovascular Comment: leaky valves, follows every six months Cardiovascular: Reports high blood pressure - Respiratory Respiratory: Denies cough, - Gastrointestinal Gastrointestinal: Denies abdominal pain, Denies diarrhea, Denies nausea, Denies vomiting - Genitourinary (Female) Comment: Incontinence - Menstruation Menstruation: Reports post hysterectomy - Musculoskeletal Comment: arthritis - Integumentary Integumentary: Denies pruritus, Denies rash - Neurological Neurological: Denies numbness, Denies weakness - Psychiatric Psychiatric: Reports anxiety - Endocrine Comment: diabetes - Hematologic/Lymphatic Comment: baby aspirin every day - Allergic/Immunologic Allergic/Immunologic: Reports seasonal allergies Objective - Vital Signs Vital signs: Vital Signs Temp 98.1 F 03/23/21 13:14 Pulse 62 03/23/21 13:14 Resp 18 03/23/21 13:14 BP 138/69 03/23/21 13:14 Pulse Ox 99 03/23/21 13:14 Intake & Output 03/22/21 03/23/21 03/23/21 18:59 06:59 18:59 Weight 86.183 kg - Exam BMI 32.6 - Constitutional General appearance: Present: average body habitus - EENT Eyes: Present: EOMI ENT: Present: hearing grossly normal - Neck Neck: Present: normal ROM - Respiratory Respiratory: bilateral: CTA - Cardiovascular Rhythm: regular Heart sounds: normal: S1, S2 - Gastrointestinal General gastrointestinal: Present: soft - Integumentary Integumentary: Present: normal turgor - Musculoskeletal Musculoskeletal: Present: gait normal - Psychiatric Psychiatric: Present: A&O x's 3, appropriate affect, intact judgment & insight - Additional findings Additional findings: breast exam: BRA: 42D inspection: Bilateral grade 3 ptosis, right breast slightly smaller than left Palpation: Right breast multi-positional exam no dominant masses or nodules of concern, well-healed scar from prior surgery Right axilla: No adenopathy of concern Left breast: Multi-positional exam fibrocystic changes no dominant masses or nodules of concern Left axilla: No adenopathy of concern Assessment and Plan Assessment: Impression: 1. Incontinence 2. Diabetes 3. Hyperlipidemia 4. Hypertension 5. Arthritis 6. DCIS right breast status post lumpectomy Plan: 1. Continue anastrozole 2. Follow-up bilateral mammogram July 2021 with appointment at that time
== END ==
LOC: WWCWWP 12:51
PROVIDERS: ATTEND Surgery
DX: D05.11 Intraductal carcinoma in situ of right breast (principal); E11.9 Type 2 diabetes mellitus without complications; E78.5 Hyperlipidemia, unspecified; I10 Essential (primary) hypertension; M19.90 Unspecified osteoarthritis, unspecified site; R32 Unspecified urinary incontinence; Z98.890 Other specified postprocedural states; Z91.048 Other nonmedicinal substance allergy status; Z79.82 Long term (current) use of aspirin; Z79.84 Long term (current) use of oral hypoglycemic drugs; Z79.899 Other long term (current) drug therapy

== ENCOUNTER → 2021-08-14 | Outpatient (CLI) | payer MEDICARE ==
--- NOTE | 2021-08-15 11:50 | MM ---
Reason for exam: additional evaluation requested from prior study. Last mammogram was performed 1 year ago. History: Patient is postmenopausal and has history of breast cancer at age 74. Malignant MG pre op needle loc RT of the right breast, June 23, 2019. Lumpectomy of the right breast, June 23, 2019. Benign MG stereo VAD BX addl LT of the left breast, May 28, 2019. Malignant MG stereo VAD BX RT of the right breast, May 28, 2019. Taking antineoplastic for 2 years. Physical Findings: Nurse did not find any significant physical abnormalities on exam. MG 3D Diag Mammo W/Cad ELI Bilateral CC and MLO view(s) were taken. Prior study comparison: August 11, 2020, bilateral MG 3d diag mammo w/cad ELI. March 10, 2020, right breast MG 3d diag mammo w/cad RT. May 28, 2019, right breast US breast limited RT. There are scattered fibroglandular densities. Post surgical and post therapy change right breast. Likely developing fat necrosis calcifications right breast, new from prior. 6 month follow up. These results were verbally communicated with the patient and result sheet given to the patient on 08/14/21. ASSESSMENT: Probably benign, BI-RAD 3 RECOMMENDATION: Follow-up diagnostic mammogram of the right breast in 6 months.
== END | disposition home or self-care (01) ==
LOC: RADMAMWWP 14:07
PROVIDERS: ATTEND Surgery
DX: R92.8 Other abnormal and inconclusive findings on diagnostic imaging of breast (principal); Z85.3 Personal history of malignant neoplasm of breast; Z78.0 Asymptomatic menopausal state
CPT/HCPCS: 77066; G0279; 77062

== ENCOUNTER → 2021-08-24 | Outpatient (CLI) | payer MEDICARE ==
[2021-08-24 15:54] VITALS: BP 138/76; PULSE 66; RESP 18; TEMP 98.3
--- NOTE | 2021-08-24 16:11 | P.PN ---
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 Post operatively the patient was seen by radiation oncology and opted not to have radiation therapy. She is presently on anastrozole from medical oncology. The lesion was approximately 6 mm in size. The patient at this time is doing well. The patient states since she started the anastrozole she was initially having some unusual pains which have subsided. She is not having any other symptoms from the anestrazole. She had a bilateral mammogram on which was BIRADS 3. Repeat right breast mammogram in 6 months is recommended. The plan was for continuing anastrazole and continue calcium and vitamin D supplement. Family history: 1.father: esophogeal cancer, at 40 2. maternal grandfather: colon cancer Hormonal history: Menarche: 12 , 1 miscarriage, breast fed: no, first at 18 menopause: 50 BCP: 8 years Hormones: none Past Surgical History: 1. bilateral knees replacement 2. bilateral hands 3. sinus 4. hysterectomy unsure if took ovaries, bleeding 5. carpal tunnel 6. bladder sling 7. right breast lumpectomy 8. carpal tunnel right hand Medical History: 1. Incontinence 2. Diabetes 3. Hyperlipidemia 4. Hypertension 5. Arthritis Social History: smoke: none alcohol: none drugs: none - Constitutional Constitutional: Denies chills, Denies fever - EENT Comment: wears glasses Eyes: denies blurred vision, denies pain Ears: bilateral: decreased hearing Ears, nose, mouth and throat: Denies headache, Denies sore throat - Breasts Breasts: bilateral: as per HPI - Cardiovascular Comment: leaky valves, follows every six months Cardiovascular: Reports high blood pressure - Respiratory Respiratory: Denies cough, - Gastrointestinal Gastrointestinal: Denies abdominal pain, Denies diarrhea, Denies nausea, Denies vomiting - Genitourinary (Female) Comment: Incontinence - Menstruation Menstruation: Reports post hysterectomy - Musculoskeletal Comment: arthritis - Integumentary Integumentary: Denies pruritus, Denies rash - Neurological Neurological: Denies numbness, Denies weakness - Psychiatric Psychiatric: Reports anxiety - Endocrine Comment: diabetes - Hematologic/Lymphatic Comment: baby aspirin every day - Allergic/Immunologic Allergic/Immunologic: Reports seasonal allergies Objective - Vital Signs Vital signs: Vital Signs Temp 98.3 F 08/24/21 15:52 Pulse 66 08/24/21 15:52 Resp 18 08/24/21 15:52 BP 138/76 08/24/21 15:52 Pulse Ox 96 08/24/21 15:52 Intake & Output 08/23/21 08/24/21 08/24/21 18:59 06:59 18:59 Weight 86.183 kg - Constitutional General appearance: Present: cooperative - EENT Eyes: Present: EOMI ENT: Present: hearing grossly normal - Neck Neck: Present: normal ROM - Respiratory Respiratory: bilateral: CTA - Cardiovascular Heart sounds: normal: S1, S2 - Musculoskeletal Musculoskeletal: Present: gait normal - Psychiatric Psychiatric: Present: A&O x's 3, appropriate affect, intact judgment & insight - Additional findings Additional findings: Breast Exam: BRA: 42C/D inspection: Bilateral grade 3 ptosis Palpation: Right breast: Multi-positional exam fibrocystic changes no dominant masses or nodules of concern, postop changes Right axilla: No adenopathy of concern Left breast: Multi-positional exam fibrocystic changes no dominant masses or nodules of concern Left axilla: No adenopathy of concern Assessment and Plan Assessment: Impression: 1. Incontinence 2. Diabetes 3. Hyperlipidemia 4. Hypertension 5. Arthritis 6. right breast DCIS no evidence of recurrence 7. Recent bilateral mammogram BIRADS 3 recommend repeat right breast mammogram 6 months calcifications most likely related to fat necrosis, this was from [id number] Plan: 1. Repeat right breast mammogram 6 months with physician exam at that time CC: Omid Gonzalez
== END ==
LOC: WWCWWP 15:44
PROVIDERS: ATTEND Surgery
DX: R32 Unspecified urinary incontinence (principal); E11.9 Type 2 diabetes mellitus without complications; E78.5 Hyperlipidemia, unspecified; I10 Essential (primary) hypertension; M19.90 Unspecified osteoarthritis, unspecified site; Z85.3 Personal history of malignant neoplasm of breast; Z91.048 Other nonmedicinal substance allergy status

== ENCOUNTER → 2022-06-21 | Outpatient (CLI) | payer MEDICARE ==
--- NOTE | 2022-06-21 12:45 | P.PN ---
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 Post operatively the patient was seen by radiation oncology and opted not to have radiation therapy. She is presently on an astrozole from medical oncology. The lesion was approximately 6 mm in size. The patient at this time is doing well. The patient states since she started the anastrozole she was initially having some unusual pains which have subsided. She is not having any other symptoms from the anestrazole. She had a bilateral mammogram on which was BIRADS 3. Repeat right breast mammogram in 6 months is recommended. The plan was for continuing anastrazole and continue calcium and vitamin D supplement. Right breast mammogram was done on 02-13-22 which was BIRAD 3. Note from Dr. Leahy reviewed 03-21-22. She is not complaining of any lumps masses or nodules in either breast. She is continuing on the anastrozole. Family history: 1.father: esophogeal cancer, at 40 2. maternal grandfather: colon cancer Hormonal history: Menarche: 12 , 1 miscarriage, breast fed: no, first at 18 menopause: 50 BCP: 8 years Hormones: none Past Surgical History: 1. bilateral knees replacement 2. bilateral hands 3. sinus 4. hysterectomy unsure if took ovaries, bleeding 5. carpal tunnel 6. bladder sling 7. right breast lumpectomy 8. carpal tunnel right hand Medical History: 1. Incontinence 2. Diabetes 3. Hyperlipidemia 4. Hypertension 5. Arthritis Social History: smoke: none alcohol: none drugs: none - Constitutional Constitutional: Denies chills, Denies fever - EENT Comment: wears glasses Eyes: denies blurred vision, denies pain Ears: bilateral: decreased hearing Ears, nose, mouth and throat: Denies headache, Denies sore throat - Breasts Breasts: bilateral: as per HPI - Cardiovascular Comment: leaky valves, follows every six months Cardiovascular: Reports high blood pressure - Respiratory Respiratory: Denies cough, - Gastrointestinal Gastrointestinal: Denies abdominal pain, Denies diarrhea, Denies nausea, Denies vomiting - Genitourinary (Female) Comment: Incontinence - Menstruation Menstruation: Reports post hysterectomy - Musculoskeletal Comment: arthritis - Integumentary Integumentary: Denies pruritus, Denies rash - Neurological Neurological: Denies numbness, Denies weakness - Psychiatric Psychiatric: Reports anxiety - Endocrine Comment: diabetes - Hematologic/Lymphatic Comment: baby aspirin every day - Allergic/Immunologic Allergic/Immunologic: Reports seasonal allergies Objective - Constitutional General appearance: Present: cooperative - EENT Eyes: Present: EOMI - Neck Neck: Present: normal ROM - Respiratory Respiratory: bilateral: CTA - Cardiovascular Rhythm: regular Heart sounds: normal: S1, S2 - Integumentary Integumentary: Present: normal turgor - Musculoskeletal Musculoskeletal: Present: gait normal - Psychiatric Psychiatric: Present: A&O x's 3, appropriate affect, intact judgment & insight - Additional findings Additional findings: Breast Exam: BRA: 42C Inspection: bilateral grade 2/3 ptosis palpation: Right breast: Postop changes, no dominant masses or nodules of concern on multiple positional exam Axilla: No adenopathy of concern Left breast: Multiple positional exam no dominant masses or nodules of concern Left axilla: No adenopathy of concern Assessment and Plan Assessment: Imprsesion: DCIS right breast diagnosed in 2019, no evidence of recurrent disease Bilateral mammogram [id number] benign BIRADS 2 Plan: Physician exam in 6 months Bilateral mammogram 1 year CC: Dr. Doe
[2022-06-21 12:47] VITALS: BP 171/82; PULSE 61; RESP 16; TEMP 97.9
== END ==
LOC: WWCWWP 11:00
PROVIDERS: ATTEND Surgery
DX: M19.90 Unspecified osteoarthritis, unspecified site (principal); E11.9 Type 2 diabetes mellitus without complications; I10 Essential (primary) hypertension; E78.5 Hyperlipidemia, unspecified; R32 Unspecified urinary incontinence; Z80.0 Family history of malignant neoplasm of digestive organs; Z91.09 Other allergy status, other than to drugs and biological substances

== ENCOUNTER → 2022-06-21 | Outpatient (CLI) | payer MEDICARE ==
--- NOTE | 2022-06-21 12:41 | MM ---
Reason for Exam: Follow-up at short interval from prior study. Last screening mammogram was performed 10 month(s) ago. Patient History: Menarche at age 10. First Full-Term at age 18. Left ovary removed at age 62. Right ovary removed at age 62. Hysterectomy at age 62. Postmenopausal. Breast cancer, age 74. 06/23/2019, Lumpectomy on the Right side. 06/23/2019, Malignant Core Biopsy on the right side. 05/28/2019, Malignant Core Biopsy on the right side. 05/28/2019, Benign Core Biopsy on the left side. Prior Study Comparison: 04/07/2019 Screening Mammogram, Unknown. 04/24/2019 Screening Mammogram, Unknown. 03/10/2020 Right Diagnostic Mammogram, [facility]. 08/11/2020 Bilateral Diagnostic Mammogram, [facility]. 08/14/2021 Bilateral Diagnostic Mammogram, [facility]. 02/13/2022 Right MG 3D diag mammo w/cad RT, [facility]. Tissue Density: There are scattered fibroglandular densities. Findings: Analyzed By CAD. Scattered calcifications are present. The liver regional on the right and stable from most recent comparison 02/13/2022. Benign scattered calcifications are present bilaterally. Stable focal asymmetry adjacent to the core marker within the left breast. No suspicious groups of microcalcifications, spiculated or lobular masses, architectural distortion or other secondary signs of malignancy are mammographically apparent. Overall Assessment: Benign, BI-RAD 2 Management: Diagnostic Mammogram of both breasts in 1 year. A negative mammogram report should not preclude additional follow up of suspicious palpable abnormalities. Patient should continue monthly self breast exam. A clinical breast exam by your physician is recommended on an annual basis and results should be correlated with mammographic findings. Electronically signed and approved by: Leonel Rutledge D.O. Radiologis
== END | disposition home or self-care (01) ==
LOC: RADMAMWWP 11:01
PROVIDERS: ATTEND Surgery
DX: Z85.3 Personal history of malignant neoplasm of breast (principal)
CPT/HCPCS: 77066; G0279; 77062

== ENCOUNTER → 2022-12-20 | Outpatient (CLI) | payer MEDICARE ==
[2022-12-20 12:05] VITALS: BP 161/85; PULSE 73; RESP 17; TEMP 97.6
--- NOTE | 2022-12-20 12:21 | P.PN ---
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 Post operatively the patient was seen by radiation oncology and opted not to have radiation therapy. She is presently on anastrozole from medical oncology. The lesion was approximately 6 mm in size. The patient at this time is doing well. The patient states since she started the anastrozole she was initially having some unusual pains which have subsided. She is not having any other symptoms from the anestrazole. She had a bilateral mammogram on which was BIRADS 3. Repeat right breast mammogram in 6 months is recommended. The plan was for continuing anastrazole and continue calcium and vitamin D supplement. Right breast mammogram was done on 02-13-22 which was BIRAD 3. Note from Dr. Leahy reviewed 03-21-22. She is not complaining of any lumps masses or nodules in either breast. She is continuing on the anastrozole. 12-20-22 Bilateral mammogram on 06-21-22 BIRAD 2 personally reviewed Patient is not complaining of any new lumps masses or nodules of concern. She is tolerating the anastrozole without difficulty. Family history: 1.father: esophogeal cancer, at 40 2. maternal grandfather: colon cancer Hormonal history: Menarche: 12 , 1 miscarriage, breast fed: no, first at 18 menopause: 50 BCP: 8 years Hormones: none Past Surgical History: 1. bilateral knees replacement 2. bilateral hands 3. sinus 4. hysterectomy unsure if took ovaries, bleeding 5. carpal tunnel 6. bladder sling 7. right breast lumpectomy 8. carpal tunnel right hand Medical History: 1. Incontinence 2. Diabetes 3. Hyperlipidemia 4. Hypertension 5. Arthritis Social History: smoke: none alcohol: none drugs: none - Constitutional Constitutional: Denies chills, Denies fever - EENT Comment: wears glasses Eyes: denies blurred vision, denies pain Ears: bilateral: decreased hearing Ears, nose, mouth and throat: Denies headache, Denies sore throat - Breasts Breasts: bilateral: as per HPI - Cardiovascular Comment: leaky valves, follows every six months Cardiovascular: Reports high blood pressure - Respiratory Respiratory: Denies cough, - Gastrointestinal Gastrointestinal: Denies abdominal pain, Denies diarrhea, Denies nausea, Denies vomiting - Genitourinary (Female) Comment: Incontinence - Menstruation Menstruation: Reports post hysterectomy - Musculoskeletal Comment: arthritis - Integumentary Integumentary: Denies pruritus, Denies rash - Neurological Neurological: Denies numbness, Denies weakness - Psychiatric Psychiatric: Reports anxiety - Endocrine Comment: diabetes - Hematologic/Lymphatic Comment: baby aspirin every day - Allergic/Immunologic Allergic/Immunologic: Reports seasonal allergies Objective - Vital Signs Vital signs: Vital Signs Temp 97.6 F 12/20/22 12:01 Pulse 73 12/20/22 12:01 Resp 17 12/20/22 12:01 BP 161/85 12/20/22 12:01 Pulse Ox 99 12/20/22 12:01 FiO2 Intake & Output 12/19/22 12/20/22 12/20/22 18:59 06:59 18:59 Weight 81.647 kg - Constitutional General appearance: Present: cooperative - EENT Eyes: Present: EOMI ENT: Present: hearing grossly normal - Neck Neck: Present: normal ROM - Respiratory Respiratory: bilateral: CTA - Cardiovascular Rhythm: regular Heart sounds: normal: S1, S2 - Gastrointestinal General gastrointestinal: Present: soft - Integumentary Integumentary: Present: normal turgor - Musculoskeletal Musculoskeletal: Present: gait normal - Psychiatric Psychiatric: Present: A&O x's 3, appropriate affect, intact judgment & insight - Additional findings Additional findings: Breast Exam: BRA: 42C Inspection: bilateral grade 2/3 ptosis palpation: Right breast: Postop changes, no dominant masses or nodules of concern on multiple positional exam Axilla: No adenopathy of concern Left breast: Multiple positional exam no dominant masses or nodules of concern Left axilla: No adenopathy of concern Assessment and Plan Assessment: Imprsesion: DCIS right breast diagnosed in 2018, no evidence of recurrent disease Bilateral mammogram [id number] benign BIRADS 2 Plan: Bilateral mammogram May 2023 with exam to follow follow up sooner any concerns CC: Dr. Doe
== END ==
LOC: WWCWWP 11:46
PROVIDERS: ATTEND Surgery
DX: C50.911 Malignant neoplasm of unspecified site of right female breast (principal); E11.9 Type 2 diabetes mellitus without complications; E78.5 Hyperlipidemia, unspecified; I10 Essential (primary) hypertension; M19.90 Unspecified osteoarthritis, unspecified site; Z91.048 Other nonmedicinal substance allergy status

== ENCOUNTER → 2023-06-27 | Outpatient (CLI) | payer MEDICARE ==
[2023-06-27 10:54] VITALS: BP 154/84; PULSE 81; RESP 18; TEMP 97.9
--- NOTE | 2023-06-27 11:04 | P.PN ---
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 Post operatively the patient was seen by radiation oncology and opted not to have radiation therapy. She is presently on anastrozole from medical oncology. The lesion was approximately 6 mm in size. The patient at this time is doing well. The patient stopped her anestrazole. She had not seen medical oncology for about 1 year. Bilateral mammogram on 06-24-23 BIRAD 2 personally reviewed Patient is not complaining of any new lumps masses or nodules of concern. Family history: 1.father: esophogeal cancer, at 40 2. maternal grandfather: colon cancer Hormonal history: Menarche: 12 , 1 miscarriage, breast fed: no, first at 18 menopause: 50 BCP: 8 years Hormones: none Past Surgical History: 1. bilateral knees replacement 2. bilateral hands 3. sinus 4. hysterectomy unsure if took ovaries, bleeding 5. carpal tunnel 6. bladder sling 7. right breast lumpectomy 8. carpal tunnel right hand Medical History: 1. Incontinence 2. Diabetes 3. Hyperlipidemia 4. Hypertension 5. Arthritis Social History: smoke: none alcohol: none drugs: none - Constitutional Constitutional: Denies chills, Denies fever - EENT Comment: wears glasses Eyes: denies blurred vision, denies pain Ears: bilateral: decreased hearing Ears, nose, mouth and throat: Denies headache, Denies sore throat - Breasts Breasts: bilateral: as per HPI - Cardiovascular Comment: leaky valves, follows every six months Cardiovascular: Reports high blood pressure - Respiratory Respiratory: Denies cough, - Gastrointestinal Gastrointestinal: Denies abdominal pain, Denies diarrhea, Denies nausea, Denies vomiting - Genitourinary (Female) Comment: Incontinence - Menstruation Menstruation: Reports post hysterectomy - Musculoskeletal Comment: arthritis - Integumentary Integumentary: Denies pruritus, Denies rash - Neurological Neurological: Denies numbness, Denies weakness - Psychiatric Psychiatric: Reports anxiety - Endocrine Comment: diabetes - Hematologic/Lymphatic Comment: baby aspirin every day - Allergic/Immunologic Allergic/Immunologic: Reports seasonal allergies Objective - Vital Signs Vital signs: Vital Signs Temp 97.9 F 06/27/23 10:52 Pulse 81 06/27/23 10:52 Resp 18 06/27/23 10:52 BP 154/84 06/27/23 10:52 Pulse Ox 96 06/27/23 10:52 FiO2 Intake & Output 06/26/23 06/27/23 06/27/23 18:59 06:59 18:59 Weight 81.647 kg - Constitutional General appearance: Present: cooperative - EENT Eyes: Present: EOMI ENT: Present: hearing grossly normal - Neck Neck: Present: normal ROM - Respiratory Respiratory: bilateral: CTA - Cardiovascular Rhythm: regular Heart sounds: normal: S1, S2 - Gastrointestinal General gastrointestinal: Present: soft - Integumentary Integumentary: Present: normal turgor - Musculoskeletal Musculoskeletal: Present: gait normal - Psychiatric Psychiatric: Present: A&O x's 3, appropriate affect, intact judgment & insight - Additional findings Additional findings: Breast Exam: BRA: 42C Inspection: bilateral grade 2/3 ptosis palpation: Right breast: Postop changes, no dominant masses or nodules of concern on multiple positional exam Axilla: No adenopathy of concern Left breast: Multiple positional exam no dominant masses or nodules of concern Left axilla: No adenopathy of concern Assessment and Plan Assessment: Imprsesion: DCIS right breast diagnosed in 2019, no evidence of recurrent disease Bilateral mammogram 06-24-23 benign BIRADS 2 Plan: Bilateral mammogram 1 year with examination at that time Follow-up with medical oncology Follow-up 6 months for breast examination follow up sooner any concerns CC: Dr. Doe
== END ==
LOC: WWCWWP 10:33
PROVIDERS: ATTEND Surgery
DX: E11.9 Type 2 diabetes mellitus without complications (principal); E78.5 Hyperlipidemia, unspecified; I10 Essential (primary) hypertension; M19.90 Unspecified osteoarthritis, unspecified site; Z85.3 Personal history of malignant neoplasm of breast; Z91.048 Other nonmedicinal substance allergy status; Z79.82 Long term (current) use of aspirin; Z79.84 Long term (current) use of oral hypoglycemic drugs; Z79.899 Other long term (current) drug therapy

== ENCOUNTER → 2023-12-27 | Outpatient (CLI) | payer MEDICARE ==
--- NOTE | 2023-12-27 11:28 | P.PN ---
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 Post operatively the patient was seen by radiation oncology and opted not to have radiation therapy. She is presently on anastrozole from medical oncology. The lesion was approximately 6 mm in size. The patient at this time is doing well. The patient stopped her anestrazole but restarted it. She has seen Dr. Leahy. Bilateral mammogram on 06-24-23 BIRAD 2 personally reviewed Patient is not complaining of any new lumps masses or nodules of concern. Family history: 1.father: esophogeal cancer, at 40 2. maternal grandfather: colon cancer Hormonal history: Menarche: 12 , 1 miscarriage, breast fed: no, first at 18 menopause: 50 BCP: 8 years Hormones: none Past Surgical History: 1. bilateral knees replacement 2. bilateral hands 3. sinus 4. hysterectomy unsure if took ovaries, bleeding 5. carpal tunnel 6. bladder sling 7. right breast lumpectomy 8. carpal tunnel right hand Medical History: 1. Incontinence 2. Diabetes 3. Hyperlipidemia 4. Hypertension 5. Arthritis Social History: smoke: none alcohol: none drugs: none - Constitutional Constitutional: Denies chills, Denies fever - EENT Comment: wears glasses Eyes: denies blurred vision, denies pain Ears: bilateral: decreased hearing Ears, nose, mouth and throat: Denies headache, Denies sore throat - Breasts Breasts: bilateral: as per HPI - Cardiovascular Comment: leaky valves, follows every six months Cardiovascular: Reports high blood pressure - Respiratory Respiratory: Denies cough, - Gastrointestinal Gastrointestinal: Denies abdominal pain, Denies diarrhea, Denies nausea, Denies vomiting - Genitourinary (Female) Comment: Incontinence - Menstruation Menstruation: Reports post hysterectomy - Musculoskeletal Comment: arthritis - Integumentary Integumentary: Denies pruritus, Denies rash - Neurological Neurological: Denies numbness, Denies weakness - Psychiatric Psychiatric: Reports anxiety - Endocrine Comment: diabetes - Hematologic/Lymphatic Comment: baby aspirin every day - Allergic/Immunologic Allergic/Immunologic: Reports seasonal allergies Objective - Constitutional General appearance: Present: cooperative - EENT Eyes: Present: EOMI ENT: Present: hearing grossly normal - Neck Neck: Present: normal ROM - Respiratory Respiratory: bilateral: CTA - Cardiovascular Rhythm: regular Heart sounds: normal: S1, S2 - Gastrointestinal General gastrointestinal: Present: soft - Integumentary Integumentary: Present: normal turgor - Musculoskeletal Musculoskeletal: Present: gait normal - Psychiatric Psychiatric: Present: A&O x's 3, appropriate affect, intact judgment & insight - Additional findings Additional findings: Breast Exam: BRA: 42C Inspection: bilateral grade 2/3 ptosis palpation: Right breast: Postop changes, no dominant masses or nodules of concern on multiple positional exam Axilla: No adenopathy of concern Left breast: Multiple positional exam no dominant masses or nodules of concern Left axilla: No adenopathy of concern Assessment and Plan Assessment: Impression: DCIS right breast diagnosed in 2018, no evidence of recurrent disease Bilateral mammogram 10-2-23 benign BIRADS 2 Plan: Bilateral mammogram June 2024 with examination at that time Follow-up with medical oncology/ patient is not following with them at this time Follow-up after mammogram in June 2024 follow up sooner any concerns CC: Dr. Doe
[2023-12-27 12:13] VITALS: BP 153/79; PULSE 71; RESP 17; TEMP 98.3
== END ==
LOC: WWCWWP 11:05
PROVIDERS: ATTEND Surgery
DX: R92.8 Other abnormal and inconclusive findings on diagnostic imaging of breast (principal); D05.11 Intraductal carcinoma in situ of right breast; Z91.048 Other nonmedicinal substance allergy status

== ENCOUNTER → 2024-06-26 | Outpatient (CLI) | payer MEDICARE ==
--- NOTE | 2024-06-26 11:43 | MM ---
Reason for Exam: Hx of breast cancer, conservation therapy. Last screening mammogram was performed 12 month(s) ago. Patient History: Menarche at age 10. First Full-Term at age 18. Left ovary removed at age 62. Right ovary removed at age 62. Hysterectomy at age 62. Postmenopausal. Breast cancer, right, age 74. 06/23/2019, Lumpectomy on the Right side. 06/23/2019, Malignant Core Biopsy on the right side. 05/28/2019, Malignant Core Biopsy on the right side. 05/28/2019, Benign Core Biopsy on the left side. Prior Study Comparison: 03/19/2018 Screening Mammogram, Unknown. 04/07/2019 Screening Mammogram, Unknown. 04/24/2019 Screening Mammogram, Unknown. 05/28/2019 Right Diagnostic Ultrasound, [facility]. 03/10/2020 Right Diagnostic Mammogram, [facility]. 08/11/2020 Bilateral Diagnostic Mammogram, [facility]. 08/14/2021 Bilateral Diagnostic Mammogram, [facility]. 02/13/2022 Right MG 3D diag mammo w/cad RT, [facility]. 06/21/2022 Bilateral MG 3D diag mammo w/cad ELI, [facility]. 06/24/2023 Bilateral MG 3D diag mammo w/cad ELI, [facility]. Tissue Density: The breasts are heterogeneously dense, which may obscure small masses. Findings: Analyzed By CAD. Postoperative changes noted right breast from prior lumpectomy. Benign calcifications seen bilaterally. No evidence for new mass or distortion. Overall Assessment: Benign, BI-RAD 2 Management: Diagnostic Mammogram of both breasts in 1 year. . Results were given to the patient verbally at the time of exam. Patient should continue monthly self-breast exams. A clinical breast exam by your physician is recommended on an annual basis. This exam should not preclude additional follow-up of suspicious palpable abnormalities. Note on Fela scores and lifetime risk: 1. A Fela score greater than 3% is considered moderate risk. If this is the case, consider specialist referral to assess eligibility for a risk reducing agent. 2. If overall lifetime risk for the development of breast cancer is 20% or higher, the patient may qualify for future screening with alternating mammogram and breast MRI. [facility], Workstation: [id number], 06/26/2024 11:39 AM. Electronically signed and approved by: Meliton Townsend M.D. Radiologis
== END | disposition home or self-care (01) ==
LOC: RADMAMWWP 10:46
PROVIDERS: ATTEND Surgery
DX: Z85.3 Personal history of malignant neoplasm of breast
CPT/HCPCS: 77062; 77066

== ENCOUNTER → 2024-07-02 | Outpatient (CLI) | payer MEDICARE ==
[2024-07-02 11:20] VITALS: BP 163/74; PULSE 68; RESP 17; TEMP 97.8
--- NOTE | 2024-07-02 11:30 | P.PN ---
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 Post operatively the patient was seen by radiation oncology and opted not to have radiation therapy. She completed 5 years of anastrozole from medical oncology completed in March 2024. The lesion was approximately 6 mm in size. The patient at this time is doing well. The patient stopped her anestrazole, she stopped this after 5 years. She is not following with medical oncology at this time. Bilateral mammogram on 07-02-24 BIRAD 2 personally reviewed and interpreted Patient is not complaining of any new lumps masses or nodules of concern. Family history: 1.father: esophogeal cancer, at 40 2. maternal grandfather: colon cancer Hormonal history: Menarche: 12 , 1 miscarriage, breast fed: no, first at 18 menopause: 50 BCP: 8 years Hormones: none Past Surgical History: 1. bilateral knees replacement 2. bilateral hands 3. sinus 4. hysterectomy unsure if took ovaries, bleeding 5. carpal tunnel 6. bladder sling 7. right breast lumpectomy 8. carpal tunnel right hand Medical History: 1. Incontinence 2. Diabetes 3. Hyperlipidemia 4. Hypertension 5. Arthritis Social History: smoke: none alcohol: none drugs: none - Constitutional Constitutional: Denies chills, Denies fever - EENT Comment: wears glasses Eyes: denies blurred vision, denies pain Ears: bilateral: decreased hearing Ears, nose, mouth and throat: Denies headache, Denies sore throat - Breasts Breasts: bilateral: as per HPI - Cardiovascular Comment: leaky valves, follows every six months Cardiovascular: Reports high blood pressure - Respiratory Respiratory: Denies cough, - Gastrointestinal Gastrointestinal: Denies abdominal pain, Denies diarrhea, Denies nausea, Denies vomiting - Genitourinary (Female) Comment: Incontinence - Menstruation Menstruation: Reports post hysterectomy - Musculoskeletal Comment: arthritis - Integumentary Integumentary: Denies pruritus, Denies rash - Neurological Neurological: Denies numbness, Denies weakness - Psychiatric Psychiatric: Reports anxiety - Endocrine Comment: diabetes - Hematologic/Lymphatic Comment: baby aspirin every day - Allergic/Immunologic Allergic/Immunologic: Reports seasonal allergies Objective - Vital Signs Vital signs: Vital Signs Temp 97.8 F 07/02/24 11:17 Pulse 68 07/02/24 11:17 Resp 17 07/02/24 11:17 BP 163/74 07/02/24 11:17 Pulse Ox 98 07/02/24 11:17 FiO2 Intake & Output 07/01/24 07/02/24 07/02/24 18:59 06:59 18:59 Weight 81.647 kg - Constitutional General appearance: Present: cooperative - EENT Eyes: Present: EOMI ENT: Present: hearing grossly normal - Neck Neck: Present: normal ROM - Respiratory Respiratory: bilateral: CTA - Cardiovascular Rhythm: regular Heart sounds: normal: S1, S2 - Integumentary Integumentary: Present: normal turgor - Musculoskeletal Musculoskeletal: Present: gait normal - Psychiatric Psychiatric: Present: A&O x's 3, appropriate affect, intact judgment & insight - Additional findings Additional findings: Breast Exam: BRA: 42C Inspection: bilateral grade 2/3 ptosis palpation: Right breast: Postop changes, no dominant masses or nodules of concern on multiple positional exam Axilla: No adenopathy of concern Left breast: Multiple positional exam no dominant masses or nodules of concern Left axilla: No adenopathy of concern Assessment and Plan Assessment: Impression: DCIS right breast diagnosed in 2018, no evidence of recurrent disease Bilateral mammogram 06-26-24 benign BIRADS 2, personally reviewed and interpreted Plan: Bilateral mammogram June 2025 with examination at that time follow up 1 year follow up sooner any concerns CC: Dr. Nader Gonzalez
== END ==
LOC: WWCWWP 10:19
PROVIDERS: ATTEND Surgery